=== PATIENT | male | born 1970 | race Caucasian/White ===

== ENCOUNTER 2019-04-08 16:39 | Outpatient (REF) | payer SELFPAY ==
[2019-04-08 21:25] LABS: HCT 42.2 % (40.0-50.0); HGB 14.6 g/dL (13.5-17.5); Mean Corp. HGB Concentration 34.6 g/dL (32.0-36.0); Mean Corpuscular Hemoglobin 35.4 pg (27.0-33.0); Mean Corpuscular Volume 102.2 fL (80-95); Mean Platelet Volume 11.6 fL (8.0-11.0); Platelet Count 155 x1000/uL (130-400); RBC 4.13 m/cumm (4.50-6.00); RBC Distribution Width 12.2 % (11.8-14.1); White Blood Cell Count 8.22 k/cumm (4.4-10.8)
[2019-04-08 21:36] LABS: ALT 30 U/L (16-63); AST 26 U/L (15-37); Albumin 3.8 g/dL (3.4-5.0); Alkaline Phosphatase 91 U/L (46-116); Anion Gap 8.2 mmol/L (3-11); BUN 16 mg/dL (7-18); Bilirubin, Total 0.4 mg/dL (0.2-1.0); CO2 26.8 mmol/L (21.0-32.0); Calcium 9.2 mg/dL (8.5-10.1); Chloride 106 mmol/L (98-107); Glucose 118 mg/dL (70-100); Lipase 221 U/L (73-393); Potassium 4.2 mmol/L (3.5-5.1); Sodium 141 mmol/L (136-145); Total Protein 6.9 g/dL (6.4-8.2)
== END 2019-04-08 16:59 ==
LOC: NCHCN 16:39
PROVIDERS: PCP Internal Medicine; Visit Provider Internal Medicine
DX: I10 Essential (primary) hypertension (principal); R68.89 Other general symptoms and signs; F10.19 Alcohol abuse with unspecified alcohol-induced disorder
CPT/HCPCS: 80053; 83690; 85027

== ENCOUNTER 2020-06-13 10:40 | Outpatient (REF) | payer SELFPAY ==
[2020-06-13 22:01] LABS: Calculated LDL 119 mg/dL (<100); Cholesterol 220 mg/dL (<200); HDL Cholesterol 42 mg/dL (40-60); Triglyceride 298 mg/dL (<150)
== END 2020-06-13 11:00 ==
LOC: NCHCN 10:40
PROVIDERS: PCP Internal Medicine; Visit Provider Internal Medicine
DX: Z13.220 Encounter for screening for lipoid disorders (principal)
CPT/HCPCS: 80061

== ENCOUNTER 2020-12-19 14:22 | Emergency (ER) | payer OTHER, SELFPAY ==
[2020-12-19 14:41] VITALS: BP 149/97; PULSE 69; RESP 18; TEMP 36.6; O2SAT 98
--- NOTE | 2020-12-19 14:45 | RT.EKG_ITS ---
APPROVED REPORT Exam: Resting ECG Reason for Exam: seizure Patient Location: E HR:65 bpm ECG Measurements Heart Rate 65 AXIS MI 145 P 24 QRSd 106 QRS -8 QT 419 T -2 QTc 437 Conclusion Sinus rhythm...normal P axis, V-rate 60- 99 Physician: Rate 65, sinus rhythm, no significant ST elevation or depression. Inverted T waves in V1 and lead II I. Small Q waves in lead I, aVL. Minimal less than a millimeter J-point elevation in V2. No eviden ce of STEMI. No evidence of epsilon wave, delta wave, Brugada syndrome
--- NOTE | 2020-12-19 15:00 | DI.CT_ITS ---
Exam(s) CT HEAD WO EXAM: CT HEAD WO CLINICAL HISTORY: syncope vs seizure. TECHNIQUE: Imaging Protocol: Axial computed tomography images with coronal and sagittal reformatted images were created and reviewed COMPARISON: No exams were available for comparison FINDINGS: Ventricles and Extra axial spaces: Normal in size and morphology for the patient's age. Hemorrhage: None. Cerebral parenchyma: Normal. No acute territorial infarct. Midline shift: None. Brainstem/Cerebellum: Normal. Calvarium: Normal. Chronic deformity of the medial wall of the right orbit which likely reflects osmin te injury. Visualized Paranasal sinuses/Mastoids: Mild mucosal thickening in the maxillary sinuses bilaterally. The remaining visualized paranasal sinuses and mastoid air cells are clear. Soft Tissues: Unremarkable. IMPRESSION: 1. No acute intracranial process. 2. Results of this exam have been verbally communicated with provider. RADIATION DOSE DELIVERED: 939.7mGy.cm Total DLP DATA REPOSITORY: All CT scans at this facility are submitted to the National Radiology Data Registry (NRDR) Dose Index Registry (DIR) with the [employer] (ACR). RADIATION OPTIMIZATION: All CT scans at this facility use at least one of these dose optimization te chniques: automated exposure control; mA and/or kV adjustment per patient size (includes targeted exa ms where dose is matched to clinical indication); or iterative reconstruction.
--- NOTE | 2020-12-19 15:11 | W.ED.GENAD ---
Discharge Plan Disposition Patient Disposition: HOME Condition: Good Discharge Details Clinical Impression: Syncope Primary Care Provider: Byron Morley ED Provider: Johnson Garduno Home Meds and New Rx's Prescriptions: Continued aspirin 81 mg Tablet,Delayed Release (Dr/Ec) 81 mg PO DAILY RF: 0 metoprolol tartrate 50 mg tablet 50 mg PO DAILY RF: 0 Discharge Instructions Instructions: Syncope (ED) Additional Instructions: At this time your work-up is very reassuring, there are no significant abnormalities they can be seen currently to suggest the cause of your symptoms. No evidence of acute life-threatening etiology at this time. You may have had a heart rhythm abnormality that caused your episode. You will be contacted by our respiratory therapy office and they will set up a time to get the monitor for you. We will be placing a referral with the neurologist for you for further assessment of potential seizure, although I feel this is less likely. You should not drive, operate machinery, climb heights (such as a ladder), swim, or bathe alone or do anything else which could be dangerous if you would have another episode. Please abide by this for the next 6 months or until cleared by a physician. If you notice any worsening of your symptoms, or any new symptoms such as vomiting, diarrhea, fever, chills, shortness of breath, chest pain, numbness, weakness, or fainting , please return immediately to the emergency department for reevaluation. Please follow up with your primary care provider as soon as possible for reassessment and reevaluation. As always, it was a pleasure participating in your medical care today. Referrals: Byron Morley MD [Primary Care Provider] - Discharge Data Discharge Date/Time-TO BE ENTERED AT DEPARTURE: 12/19/20 17:16 Medical Decision Making This is a 50-year-old male with a past medical history of hypertension, previous anxiety attacks, regular tobacco abuse, who presents today for evaluation of syncope versus seizure. Patient is unaware of the events that brought him here, but his significant other states that he was sitting on the couch watching TV when he suddenly zoned out, started drooling, and had notable tremulousness/shaking. The episode lasted less than a minute and the patient woke up moments later. Patient had no complaints at that time and felt like he woke up from sleep. Patient states he has been relaxing all day. The ambient temperature in his house was between 75 and 78 ?F. He denies any exertion today. Currently he admits to a very minimal headache in the left frontal aspect of his scalp, which she states is a normal place that he often gets headaches. The patient denies any headache red flags of worst headache of life, thunderclap headache, neck pain, fever, chills, concerning family history of polycystic kidney disease, Marfan syndrome, Randi-Danlos syndrome, abdominal aortic aneurysm, aortic dissection, or intracranial aneurysm. The patient denies any chest pain, tearing or ripping sensation in the chest, arm neck or shoulder pain. He denies any IV or illicit drug use. He denies any alcohol use today. He denies any vomiting, diarrhea, diaphoresis, sweatiness, vision changes, hearing changes or other complaints. No family history of sudden at a young age, syncope, strokes, aneurysms, or heart attacks less than the age of 90. Patient states that the only other time he passed out was when he was in combat during the go for. Patient states that he feels well now, and feels good enough to go home. No other complaints at this time. No other modifying factors. Physical exam is notably unremarkable and very reassuring. Patient has no meningeal signs, no nuchal rigidity. Headache is notably unremarkable both per the patient and on my exam. The headache actually gets better when I rub the front of his forehead. No pulse asymmetry. No neurologic deficits on exam. Patient feels remarkably well and states that he would like to go home. He is open to further testing though if directed. Differential at this time is broad. I feel that seizure is unlikely as there is no evidence of tongue biting, or a postictal state. HI and dissection also appear notably unlikely based on exam and history. Cardiac dysrhythmia is certainly of consideration, and we will monitor him closely here. PE is unlikely but on the differential with the notable inverted T wave in lead III, and the episode of potential syncope. We will get a D-dimer. Patient is otherwise low risk. We will gently rehydrate, monitor closely and reassess. 6:30 PM Laboratory work-up has returned unremarkable. EKG stable. Electrolytes normal. Troponin normal. Thyroid function normal, urine drug screen clean. CT scan negative for acute process per radiology. During the patient's stay here he has remained asymptomatic, feels well and notably request to go home. Repeat neurologic exam continues to remain unremarkable. I did discuss with the patient getting a repeat troponin EKG, and at this time he would like to hold off on any additional testing and go home. We discussed the risks and benefits of this and he understands. I did discuss with the patient the importance of concerning red flags for which to return. I have uncertain as to the exact etiology which caused his episode, seizure is still in the differential but seems unlikely based on history. Dysrhythmia is potentially a cause. We will schedule for a Holter monitor to be placed. We will place a referral for potential EEG testing for seizure. I have extensively reviewed the treatment plan and discharge instructions with the patient and their family. I have addressed all patient concerns at this time. The patient and family was made aware of what symptoms to monitor for that would warrant a return to the emergency department. Discussed the plan with the patient and family, they demonstrate verbal understanding and agreement with our assessment and plan at this time. The documentation in this chart was dictated using [employer] dictation software. Please excuse any dictation errors. EKG 14: 54 Rate 65, sinus rhythm, no significant ST elevation or depression. Inverted T waves in V1 and lead III. Small Q waves in lead I, aVL. Minimal less than a millimeter J-point elevation in V2. No evidence of STEMI. No evidence of epsilon wave, delta wave, Brugada syndrome. FINDINGS: Ventricles and Extra axial spaces: Normal in size and morphology for the patient's age. Hemorrhage: None. Cerebral parenchyma: Normal. No acute territorial infarct. Midline shift: None. Brainstem/Cerebellum: Normal. Calvarium: Normal. Chronic deformity of the medial wall of the right orbit which likely reflects remote injury. Visualized Paranasal sinuses/Mastoids: Mild mucosal thickening in the maxillary sinuses bilaterally. The remaining visualized paranasal sinuses and mastoid air cells are clear. Soft Tissues: Unremarkable. IMPRESSION: 1. No acute intracranial process. 2. Results of this exam have been verbally communicated with provider. HPI General Date/Time Provider Initiated Documentation: 12/19/20 14:32. HPI Narrative: This is a 50-year-old male with a past medical history of hypertension, previous anxiety attacks, regular tobacco abuse, who presents today for evaluation of syncope versus seizure. Patient is unaware of the events that brought him here, but his significant other states that he was sitting on the couch watching TV when he suddenly zoned out, started drooling, and had notable tremulousness/shaking. The episode lasted less than a minute and the patient woke up moments later. Patient had no complaints at that time and felt like he woke up from sleep. Patient states he has been relaxing all day. The ambient temperature in his house was between 75 and 78 ?F. He denies any exertion today. Currently he admits to a very minimal headache in the left frontal aspect of his scalp, which she states is a normal place that he often gets headaches. The patient denies any headache red flags of worst headache of life, thunderclap headache, neck pain, fever, chills, concerning family history of polycystic kidney disease, Marfan syndrome, Randi-Danlos syndrome, abdominal aortic aneurysm, aortic dissection, or intracranial aneurysm. The patient denies any chest pain, tearing or ripping sensation in the chest, arm neck or shoulder pain. He denies any IV or illicit drug use. He denies any alcohol use today. He denies any vomiting, diarrhea, diaphoresis, sweatiness, vision changes, hearing changes or other complaints. No family history of sudden at a young age, syncope, strokes, aneurysms, or heart attacks less than the age of 90. Patient states that the only other time he passed out was when he was in combat during the go for. Patient states that he feels well now, and feels good enough to go home. No other complaints at this time. No other modifying factors. Related Data Home Medications Medication Instructions Recorded Confirmed aspirin 81 mg PO DAILY 12/19/20 12/19/20 metoprolol tartrate 50 mg PO DAILY 12/19/20 12/19/20 Allergies Allergy/AdvReac Type Severity Reaction Status Date / Time codeine AdvReac Unverified 07/07/13 18:11 General Stated Complaint: Seizure ISSA: 2 Review of Systems All systems reviewed & are unremarkable except as noted in HPI and below PFSH Social History Smoking/Tobacco Use Status: Current every day Tobacco Type: cigarettes Smoking risk assessment performed?: Yes Alcohol Intake: current Alcohol Intake frequency: 3 or more drinks per day Alcohol type: hard liquor Drug use: Never Do you feel safe at home: Yes Do you feel safe in your relationship?: Yes Exam Narrative Exam Narrative: 1.Const: Well-nourished, Well-developed, appearing stated age 2.Eyes: PERRL, no conjunctival injection, and symmetrical lids. 3.ENT: Atraumatic external nose and ears. Moist MM. Neck: Symmetric, trachea midline, No thyromegaly. Patient demonstrates good movement of cervical neck. There is no nuchal rigidity, no nuchal tenderness. Patient is able to flex the neck without any difficulty or significant pain. Negative Kernig's and Brudzinski sign. 4.CVS: +S1/S2, No murmurs or gallops. Peripheral pulses 2+ and equal in all extremities. Brisk capillary refill in all extremities. 5.RESP: Unlabored respiratory effort. Clear to auscultation bilaterally. No wheezes rales or rhonchi 6.GI: Soft, Nontender/Nondistended, No hepatosplenomegaly. No guarding or rebound. 7.MSK: Normocephalic/Atraumatic, Extremities w/o deformity or ttp No cyanosis or clubbing, Normal movement of all extremities 8.Skin: Warm, Dry. No rashes or lesions. 9.Neuro: basketball referee II-XII grossly intact. Sensation grossly intact, no focal neurologic deficits. All 6 cardinal planes of vision are fully intact. No evidence of rotatory or vertical nystagmus. The patient demonstrated a normal hcsuvs-fzyf-hpibze, good dexterity. There was no evidence of dysdiadochokinesia. Patient was able to ambulate without difficulty. There was no wide-based gait. Romberg testing was normal. Yurd-wh-glty testing was normal. Sensation was intact bilaterally as well as muscle strength bilaterally for all extremities. Patient was able to verbalize butter cup with no slurring, or miss pronunciation. 10.Psych: (AAO) x3. Appropriate mood and affect Course Vital Signs Vital signs: Vital Signs Temperature 36.6 C 12/19/20 14:41 Pulse 69 12/19/20 14:41 Respiratory Rate 18 12/19/20 14:41 Blood Pressure 149/97 H 12/19/20 14:41 Pulse Oximetry 98 12/19/20 14:41 Temperature 36.6 C 12/19/20 14:41 Temperature Source Temporal Artery Scan 12/19/20 14:41 Pulse 69 12/19/20 14:41 Respiratory Rate 18 12/19/20 14:41 Respiratory Effort Non-Labored 12/19/20 14:47 Blood Pressure 149/97 H 12/19/20 14:41 Blood Pressure Position Sitting 12/19/20 14:41 Pulse Oximetry 98 12/19/20 14:41 Oxygen Delivery Method Room Air 12/19/20 14:41 Oxygen Flow Rate 0 12/19/20 14:41 Pain Level 0 12/19/20 14:41
[2020-12-19] MEDS: Normal Saline 1,000 ML 1000 ML IV (15:14)
[2020-12-19 15:25] LABS: Abs Immature Grans 0.01 10^3/uL (0.0-0.06); Absolute Basophil Count 0.04 10^3/uL (0.0-0.2); Absolute Eosinophil Count 0.14 10^3/uL (0.0-0.7); Absolute Lymphocyte Count 1.69 10^3/uL (1.2-3.4); Absolute Neutrophil Count 3.54 10^3/uL (1.2-6.7); Basophils % 0.6; Eosinophils % 2.3; HGB 14.6 g/dL (13.5-17.5); Immature Grans % 0.2; Lymphocytes % 27.2; MCH 32.5 pg (27.0-33.0); MCV 95.8 fL (80-95); MPV 11.2 fL (8.0-11.0); Monocytes % 12.9; Neutrophils % 56.8; Nucleated RBC 0 %; Platelet Count 161 10^3/uL (130-400); RBC 4.49 10^6/uL (4.36-5.78); RDW 12.5 % (11.8-14.1); RDW-SD 44.3 fL; WBC 6.22 10^3/uL (4.4-10.8)
[2020-12-19 15:59] LABS: Troponin I < 0.05 ng/mL (<0.06)
[2020-12-19 16:00] LABS: ALT 25 U/L (16-63); AST 15 U/L (15-37); Albumin 3.7 g/dL (3.4-5.0); Alkaline Phosphatase 104 U/L (46-116); Anion Gap 7.5 mmol/L (3-11); BUN 15 mg/dL (7-18); Bilirubin, Total 0.3 mg/dL (0.2-1.0); CO2 27.5 mmol/L (21.0-32.0); CREATININE 0.9 mg/dL (0.70-1.30); Calcium 9.3 mg/dL (8.5-10.1); Chloride 104 mmol/L (98-107); Glucose 114 mg/dL (74-106); Potassium 3.7 mmol/L (3.5-5.1); Sodium 139 mmol/L (136-145); TSH (W/Ref FT4) 1.94 uIU/mL (0.36-3.74); Total Protein 7.3 g/dL (6.4-8.2)
[2020-12-19 16:02] LABS: PTT Activated 23.9 sec (21.0-27.5); Prothrombin Time 9.6 sec (9.3-11.0)
[2020-12-19 16:11] LABS: *AMPHETAMINES SCREEN URINE Negative (Negative); *BARBITURATES SCREEN URINE Negative (Negative); *BENZODIAZEPINES SCREEN URINE Negative (Negative); Cannabinoids THC Negative (Negative); Cocaine Screen,Urine Negative (Negative); METHADONE URINE SCREEN Negative (Negative); OPIATES URINE SCREEN Negative (Negative)
[2020-12-19 16:16] LABS: D-Dimer 132 ng/mlFEU (<500)
[2020-12-19 16:27] LABS: Tricyclic Antidepressants Negative (Negative)
--- NOTE | 2020-12-19 17:06 | NUR.NOTE ---
Nursing Note: Referral faxed to [facility] for seizure, follow up in 1 to 2 weeks. Kay Rao
--- NOTE | 2020-12-19 17:13 | NUR.NOTE ---
Nursing Note: [place] [phone]
== END 2020-12-19 17:16 | disposition home or self-care (01) ==
PROVIDERS: Emergency Provider Student in an Organized Health Care Education/Training Program; PCP Internal Medicine
DX: R55 Syncope and collapse (principal)
CPT/HCPCS: 80053; 80307; 93005; 96360; 99284; 70450; 83735; 84443; 84484; 85025; 85379; 85610; 85730; 93010; 93225

== ENCOUNTER 2020-12-29 03:23 | Outpatient (RCR) | payer OTHER, SELFPAY ==
--- NOTE | 2020-12-29 09:45 | HOLTER_ITS ---
APPROVED REPORT Conclusion This was a 48-hour Holter monitor ordered for syncope Predominant rhythm was sinus with an average heart rate of 86. Minimum was 64, maximum 119 A total of 3 isolated PVCs were seen There were rare atrial premature beats. There was 1 self-limited atrial run, 3 beats in duration There was no atrial fibrillation, no high-grade AV block, no pauses greater than 3 seconds No symptoms were reported
== END 2021-01-10 23:59 | disposition home or self-care (01) ==
LOC: RT 03:23
PROVIDERS: PCP Internal Medicine; Visit Provider Internal Medicine
DX: R55 Syncope and collapse (principal); I49.3 Ventricular premature depolarization; I49.1 Atrial premature depolarization
CPT/HCPCS: 93225; 93226

== ENCOUNTER 2021-03-30 17:19 | Outpatient (REF) | payer SELFPAY ==
[2021-04-01 15:58] LABS: COVID-19 RT-PCR UVMMC Result Negative (Negative)
== END 2021-03-30 17:20 | disposition home or self-care (01) ==
LOC: NCHCN 17:19
PROVIDERS: PCP Internal Medicine; Visit Provider Family Medicine
DX: Z20.822 Contact with and (suspected) exposure to COVID-19 (principal)
CPT/HCPCS: U0003

== ENCOUNTER → 2022-02-25 01:40 | Outpatient (CLI) | payer OTHER, SELFPAY ==
--- NOTE | 2022-02-25 | DI.US_ITS ---
Exam(s) US BREAST LT COMPLETE EXAM: US BREAST LT COMPLETE CLINICAL HISTORY: LT BREAST LUMP, N63.0, [id number]. TECHNIQUE: Complete ultrasound of the left breast was performed including all 4 quadrants, the retro areolar region, and the ipsilateral axilla. COMPARISON: Today's mammogram was reviewed FINDINGS: Retroareolar region density measuring 2 x 1.2 cm, correspond to the finding on the mammogram. Typica l for gynecomastia. No other significant focal findings in all 4 quadrants of the left breast. Scanning of the left axilla is negative for adenopathy. IMPRESSION: Moderate gynecomastia left breast. BI-RADS Category 2 - Benign Findings Breast Density - Category B - Scattered areas of fibroglandular density Breast density Category C or D implies that the patient has dense breast tissue. Dense breast tissue can make it harder to find cancer on a mammogram. Dense breast tissue is also associated with an incr eased risk of breast cancer. This information about the result of the mammogram report was provided to the patient to raise their awareness. Use this report when you speak with the patient about their risks for breast cancer, which includes their family history. At that time, you may recommend additional screening tests (Ultrasoun d or MRI) as these tests may add significant information. A negative radiographic report should not delay biopsy if a dominant or clinically suspicious mass is present. Up to ten percent of cancers are not identified on mammography. A negative report may reinforce clinical impression. Adenosis and dense breasts may obscure an underlying neoplasm. False positive reports average 6 to 10%. Patient will receive a letter notifying them of these results.
--- NOTE | 2022-02-25 13:25 | DI.MAMMO_ITS ---
Exam(s) MAMMO DIAGNOSTIC BI EXAM: MAMMO DIAGNOSTIC BI AND COMPLETE LEFT BREAST ULTRASOUND CLINICAL HISTORY: LT BREAST LUMP, N63.0, [id number]. TECHNIQUE: BOTH CC AND MLO mammographic images were obtained with 3D tomosynthesis technique and uti lizing computer aided detection (CAD). Also performed complete ultrasound examination left breast including all 4 quadrants, the retroareola r region, and left axilla COMPARISON: None. This is the 1st mammogram for this 51-year-old male patient. Patient feels a lum p in the retroareolar region left breast. FINDINGS: DIAGNOSTIC BILATERAL MAMMOGRAM: There is bilateral gynecomastia, significantly more so on the left side. On the left side there is t ypical flame shaped density emanating up from the nipple towards the upper outer quadrant, typical of gynecomastia. A lesser amount of the same is seen on the opposite-right side. There are no maligna nt-appearing microcalcification groups in this region or elsewhere in the breast. No additional nodu les evident. No enlarged axillary lymph nodes. COMPLETE LEFT BREAST ULTRASOUND: There is typical gynecomastia in the retroareolar region of the left breast. No other discernible fo brett findings in all 4 quadrants. No ipsilateral axillary adenopathy IMPRESSION: Findings are consistent with bilateral gynecomastia. This is significantly more prominent on the lef t side. There are no malignant-appearing masses. BI-RADS Category 2 - Benign Findings Breast Density - Category B - Scattered areas of fibroglandular density Breast density Category C or D implies that the patient has dense breast tissue. Dense breast tissue can make it harder to find cancer on a mammogram. Dense breast tissue is also associated with an incr eased risk of breast cancer. This information about the result of the mammogram report was provided to the patient to raise their awareness. Use this report when you speak with the patient about their risks for breast cancer, which includes their family history. At that time, you may recommend additional screening tests (Ultrasoun d or MRI) as these tests may add significant information. A negative radiographic report should not delay biopsy if a dominant or clinically suspicious mass is present. Up to ten percent of cancers are not identified on mammography. A negative report may reinforce clinical impression. Adenosis and dense breasts may obscure an underlying neoplasm. False positive reports average 6 to 10%. Patient will receive a letter notifying them of these results.
== END ==
PROVIDERS: PCP Internal Medicine; Visit Provider Family Medicine
DX: N62 Hypertrophy of breast (principal)
CPT/HCPCS: 76642; 77062; 77066; G0279

== ENCOUNTER 2022-12-30 17:22 | Emergency (ER) | payer OTHER, SELFPAY ==
[2022-12-30 17:23] VITALS: BP 154/102; PULSE 87; RESP 15; TEMP 36.4; O2SAT 98
--- NOTE | 2022-12-30 18:19 | DI.RAD_ITS ---
Exam(s) XR THUMB LT EXAM: XR THUMB LT EXAM DATE/TIME: CLINICAL HISTORY: skil saw laceration. TECHNIQUE: 2D digital imaging was performed. COMPARISON: None. FINDINGS: BONES: There is a comminuted fracture of the distal phalanx of the thumb. There are displaced fractu re fragments. There is a soft tissue defect on the dorsum of the thumb suggesting an open fracture. There are tiny densities adjacent to the head of the proximal phalanx which may represent a small av ulsed fracture. No bony destructive lesion is seen. JOINTS: No dislocation present. SOFT TISSUE: Normal. IMPRESSION: 1. Findings of an open comminuted fracture of the distal phalanx of the thumb. 2. Findings suspicious for avulsed fracture involving the head of the proximal phalanx of the thumb. DATA REPOSITORY: RADIATION DOSE DELIVERED:
--- NOTE | 2022-12-30 18:54 | DI.VRAD_ITS ---
PROCEDURE INFORMATION: Exam: XR Left Finger(s) Exam date and time: 12/30/2022 6:12 PM Age: 52 years old Clinical indication: Injury or trauma; Other: Chain saw accident; Bleeding/hemorrhage; Finger; Left thumb; Injury date: 12/30/2022 TECHNIQUE: Imaging protocol: Radiologic exam of the left fingers. Views: Minimum 2 views. COMPARISON: No relevant prior studies available. FINDINGS: Bones/joints: Comminuted open fracture of the distal thumb phalanx. The interphalangeal and metacarpophalangeal joint are intact. Soft tissues: Soft tissue defect along the nailbed area. IMPRESSION: Open comminuted fracture distal thumb phalanx. Dictated and Authenticated by: Chintan Arora MD. Ordering:LOREN Block MD
[2022-12-30] MEDS: Cephalexin 500 MG CAP, 4 CAPS/BTL PO (19:24)
--- NOTE | 2022-12-30 19:25 | NUR.NOTE ---
Pt placed on senior caregiver list for F/U with hand surgery. F/U within 1-2 days due to urgency.
--- NOTE | 2023-01-01 08:19 | ED.GENADUL_ITS ---
Discharge Plan Disposition Patient Disposition: Home Discharge Details Clinical Impression: Open fracture of left thumb Primary Care Provider: Byron Morley ED Provider: Mckayla Krishnan Home Meds and New Rx's Prescriptions: New cephalexin 500 mg capsule 500 mg PO Q6H 7 Days Qty: 28 0RF Continued fluoxetine [Prozac] 10 mg capsule 10 mg PO DAILY PRN aspirin 81 mg Tablet,Delayed Release (Dr/Ec) 81 mg PO DAILY metoprolol tartrate 50 mg tablet 50 mg PO DAILY Patient Comments: TAKE ONE TABLET BY MOUTH TWICE A DAY Discharge Instructions Additional Instructions: Take the antibiotics as prescribed Ibuprofen and Tylenol as needed for pain Keep a bulky dressing in place It is very important that you follow-up with hand surgery, you are at risk for infection or even loss of your thumb without appropriate follow-up I placed a referral to the [facility] in [place] for hand surgery follow-up I will also send a message to your primary care physician Keep a bulky dressing in place, you should not be bending your thumb until you are cleared by hand surgery Please take the antibiotic daily Sutures will need to be removed in 14 days Return immediately with fever, chills, or with any new or worsening complaint Referrals: Kam Freire MD [ [facility] STAFF PHYSICIAN] - 1 day Discharge Data Discharge Date/Time-TO BE ENTERED AT DEPARTURE: 12/30/22 19:50 Medical Decision Making 52-year-old gentleman presents under the influence of alcohol but alert and oriented and ambulatory X-ray was ordered which shows fracture through PIP joint on thumb, open fracture, mildly diminished flexion, extension intact, neurovascularly intact per radiology interpretation and my review Physician tiler's assistant Jamison initiated Laceration sutured and referral to urgent hand surgery at the [facility] with care management assistance Tetanus updated Placed in a bulky dressing which will also allow for splinting Return precautions reviewed and patient expressed understanding, we had several conversations regarding need for emergent hand surgery reassessment within the next 2 to 3 days Patient appears to understand and was able to reiterate our conversation HPI General Date/Time Provider Initiated Documentation: 12/30/22 17:58 . HPI Narrative: This 52-year-old gentleman presents with report of injury to thumb. He took 4 shots of alcohol and use the skills got, accidentally cutting his thumb. Denies any additional injuries. He denies history of coagulopathy. The event occurred approximately an hour prior to arrival per patient. He denies any strength or sensation change. Unsure regarding his tetanus. Related Data Home Medications Medication Instructions Recorded Confirmed aspirin 81 mg tablet,delayed 81 mg PO DAILY 12/19/20 12/30/22 release metoprolol tartrate 50 mg tablet 50 mg PO DAILY 12/19/20 12/30/22 fluoxetine 10 mg capsule (Prozac) 10 mg PO DAILY PRN 12/26/20 12/30/22 cephalexin 500 mg capsule 500 mg PO Q6H 7 days #28 caps 12/30/22 Previous Rx's Medication Instructions Recorded cephalexin 500 mg capsule 500 mg PO Q6H 7 days #28 caps 12/30/22 Allergies Allergy/AdvReac Type Severity Reaction Status Date / Time poison kamran extract Allergy Verified 12/30/22 17:27 poison oak extract Allergy Verified 12/30/22 17:27 codeine AdvReac Unverified 12/30/22 17:27 General Stated Complaint: Laceration ISSA: 4 PFSH All Active Problems (Updated 12/30/22 @ 19:37 by GERARDO López) Open fracture of left thumb (Acute) Spell of altered cognition (Acute) Syncope (Chronic) Medical History Anxiety Excessive drinking of alcohol Hypertension Smoker Surgical History S/P eye surgery metal shrapnel removal S/P hernia repair Social History Smoking/Tobacco Use Status: Current every day Tobacco Type: cigarettes Smoking packs per day: 0.25 Smoking cigarettes per day: 5.0 Smoking risk assessment performed?: Yes Alcohol Intake: current Alcohol Intake frequency: 3 or more drinks per day Alcohol type: hard liquor Drug use: Never Substance use type: does not use Household members: significant other and children Housing: house current occupation: Yardwork; [employer] Pets and animals: Yes Pets and animals: dog(s) and farm animals What is your relationship status?: Panel score (0-1 are the most socially isolated patients): 0 What type of physical activity do you participate in: walking Seatbelt use: always Do you feel safe at home: Yes Do you feel safe in your relationship?: Yes Exam Neuro Other: Alert and oriented, emotionally labile Extrem Other: Left thumb with approximately 2 inch laceration, able to flex and extend thumb, sensation intact distally mildly diminished flexion Course Vital Signs Vital signs: Vital Signs Temperature 36.4 C L 12/30/22 17:23 Pulse 87 12/30/22 17:23 Respiratory Rate 15 12/30/22 17:23 Blood Pressure 154/102 H 12/30/22 17:23 Pulse Oximetry 98 12/30/22 17:23 Temperature 36.4 C L 12/30/22 17:23 Temperature Source Temporal Artery Scan 12/30/22 17:23 Pulse 87 12/30/22 17:23 Respiratory Rate 15 12/30/22 17:23 Respiratory Effort Normal 12/30/22 17:25 Blood Pressure 154/102 H 12/30/22 17:23 Blood Pressure Position Sitting 12/30/22 17:23 Pulse Oximetry 98 12/30/22 17:23 Oxygen Delivery Method Room Air 12/30/22 17:23 Oxygen Flow Rate 0 12/30/22 17:23 Pain Level 4 12/30/22 19:43 PAWSS Have you Been Recently Intoxicated or Drunk Within the Last 30 days?: Yes Have you Ever Experienced Previous Episodes of Alcohol Withdrawal?: Yes Have you ever Experienced Withdrawal Seizures?: No Have you ever Experienced Delirium Tremens(DT)s?: No Have you ever undergone Alcohol Rehabilitation Treatment (i.e, inpt ot outpatient treatment programs)?: No Have you ever Experienced Blackouts?: No Have you ever Combined Alcohol with other Downers within the last 90 days?: No Have you ever Combined Alcohol with any other Substance of Abuse during the last 90 days?: No Result: 2
== END 2022-12-30 19:50 | disposition home or self-care (01) ==
PROVIDERS: Emergency Provider Physician Assistant; PCP Internal Medicine
DX: S62.502B Fracture of unspecified phalanx of left thumb, initial encounter for open fracture (principal); W29.3XXA Contact with powered garden and outdoor hand tools and machinery, initial encounter
CPT/HCPCS: 90471; 99284; 73140

== ENCOUNTER 2023-11-13 13:47 | Emergency (ER) | payer OTHER, SELFPAY ==
[2023-11-13 13:51] VITALS: BP 219/130; PULSE 117; RESP 20; O2SAT 100
--- NOTE | 2023-11-13 14:16 | ED.GENADUL_ITS ---
Discharge Plan Disposition Patient Disposition: Home Condition: Improving Discharge Details Chief Complaint: Epistaxis Clinical Impression: Epistaxis Primary Care Provider: Byron Morley ED Provider: Tirso Altamirano Home Meds and New Rx's Prescriptions: No Action fluoxetine [Prozac] 10 mg capsule 10 mg PO DAILY PRN aspirin 81 mg Tablet,Delayed Release (Dr/Ec) 81 mg PO DAILY metoprolol tartrate 50 mg tablet 50 mg PO DAILY Patient Comments: TAKE ONE TABLET BY MOUTH TWICE A DAY Discharge Instructions Instructions: Nosebleed (ED) Additional Instructions: Please follow-up with your primary care physician or return to the emergency department to have your nasal packing removed within the next 2 days. HPI General Date/Time Provider Initiated Documentation: 11/13/23 13:49 . HPI Narrative: 52-year-old male presents with intermittent nosebleed over the last 2 days, mainly comes from his left nares, denies trauma denies drug use Related Data Home Medications Medication Instructions Recorded Confirmed aspirin 81 mg tablet,delayed 81 mg PO DAILY 12/19/20 11/13/23 release metoprolol tartrate 50 mg tablet 50 mg PO DAILY 12/19/20 11/13/23 fluoxetine 10 mg capsule (Prozac) 10 mg PO DAILY PRN 12/26/20 11/13/23 Allergies Allergy/AdvReac Type Severity Reaction Status Date / Time Opioids - Morphine Analogues Allergy Mild rash Verified 11/13/23 14:04 poison kamran extract Allergy Other (See Verified 11/13/23 14:04 Comment) poison oak extract Allergy Other (See Verified 11/13/23 14:04 Comment) codeine AdvReac Mild Other (See Unverified 11/13/23 14:04 Comment) General Stated Complaint: Epistaxis ISSA: 3 Exam Narrative Exam Narrative: Examination: HEENT: Anterior epistaxis from left nares, no signs of posterior bleed, no signs of trauma Respiratory: Speaking full sentences no respiratory distress Course Vital Signs Vital signs: Vital Signs Pulse 117 H 11/13/23 13:51 Respiratory Rate 20 11/13/23 13:51 Blood Pressure 219/130 H 11/13/23 13:51 Pulse Oximetry 100 11/13/23 13:51 Pulse 117 H 11/13/23 13:51 Respiratory Rate 20 11/13/23 13:51 Respiratory Effort Normal 11/13/23 13:59 Blood Pressure 219/130 H 11/13/23 13:51 Blood Pressure Position Sitting 11/13/23 13:51 Pulse Oximetry 100 11/13/23 13:51 Oxygen Delivery Method Room Air 11/13/23 13:51 Oxygen Flow Rate 0 11/13/23 13:51 Pain Level 0 11/13/23 13:51 Medical Decision Making 52-year-old male presents with intermittent nosebleed left anterior nares over the last 24 to 48 hours, atraumatic denies drug use, no to be hypertensive tachycardic on arrival likely stress response to epistaxis. Neurologically intact, no respiratory compromise, anterior left nares bleeds no signs of posterior bleed. Will attempt hemostasis with TXA and Afrin. Close reassessment if unsuccessful will likely place Rhino Rocket 15: 36 despite administration of TXA and Afrin and nasal clamp, patient still having anterior nosebleed. 7.5 Rhino Rocket placed in left nares with great hemostasis. Patient resting comfortably no acute distress Quality:SDOH Health Related Social Needs: No Data to Display PFSH All Active Problems (Updated 11/13/23 @ 15:37 by Tirso Altamirano MD) Epistaxis (Acute) Spell of altered cognition (Acute) Syncope (Chronic) Medical History Anxiety Excessive drinking of alcohol Hypertension Smoker Surgical History S/P eye surgery metal shrapnel removal S/P hernia repair Social History Smoking/Tobacco Use Status: Current every day Tobacco Type: cigarettes Smoking packs per day: 0.25 Smoking cigarettes per day: 5.0 Smoking risk assessment performed?: Yes Alcohol Intake: current Alcohol Intake frequency: 3 or more drinks per day Alcohol type: hard liquor Drug use: Never Substance use type: does not use Household members: significant other and children Housing: house current occupation: Yardwork; [employer] Pets and animals: Yes Pets and animals: dog(s) and farm animals What is your relationship status?: Panel score (0-1 are the most socially isolated patients): 0 What type of physical activity do you participate in: walking Seatbelt use: always Do you feel safe at home: Yes Do you feel safe in your relationship?: Yes
[2023-11-13] MEDS: Oxymetazolone 0.05% SPRAY 15 ML BTL NS (14:24)
[2023-11-13] MEDS: Tranexamic Acid 1,000 MG/10 ML VIAL 500 MG NS (14:25)
== END 2023-11-13 16:07 | disposition home or self-care (01) ==
LOC: ER 16:11
PROVIDERS: Emergency Provider Emergency Medicine; PCP Internal Medicine
DX: R04.0 Epistaxis (principal); I10 Essential (primary) hypertension
CPT/HCPCS: 30903

== ENCOUNTER 2023-11-15 12:17 | Emergency (ER) | payer OTHER, SELFPAY ==
[2023-11-15 12:18] VITALS: BP 188/87; PULSE 93; RESP 15; TEMP 37.5; O2SAT 99
--- NOTE | 2023-11-15 12:50 | ED.GENADUL_ITS ---
Discharge Plan Disposition Patient Disposition: Home Condition: Stable Discharge Details Clinical Impression: Epistaxis Primary Care Provider: Byron Morley ED Provider: Mckayla Krishnan Home Meds and New Rx's Prescriptions: Continued fluoxetine [Prozac] 10 mg capsule 10 mg PO DAILY PRN aspirin 81 mg Tablet,Delayed Release (Dr/Ec) 81 mg PO DAILY metoprolol tartrate 50 mg tablet 50 mg PO DAILY Patient Comments: TAKE ONE TABLET BY MOUTH TWICE A DAY Discharge Instructions Instructions: Nosebleed (ED) Additional Instructions: Cut your nostrils daily with Vaseline and use a humidifier in your room at night Great job with your alcohol cessation although it is typically recommended to decrease by 1 drink daily so you do not develop withdrawals Should your nose start bleeding again, you may use Afrin nasal spray, 2 sprays in your nose and apply her nasal clamp for 20 minutes, if you continue to bleed, please be reassessed Please return earlier should you have new or worsening complaints Referrals: Byron Morley MD [Primary Care Provider] - Discharge Data Discharge Date/Time-TO BE ENTERED AT DEPARTURE: 11/15/23 13:07 HPI General Date/Time Provider Initiated Documentation: 11/15/23 12:21 . HPI Narrative: This 52-year-old male presents with report of epistaxis with Rhino Rocket placement on Friday of this week. He has had cessation of bleeding and presents for Rhino Rocket removal. He denies any fever or chills. Denies any history of coagulopathy. He does consume alcohol several times a week but denies any history of withdrawals and has not had a drink for several days per patient. Denies any bleeding from other sites. Denies any weakness or dizziness. Related Data Home Medications Medication Instructions Recorded Confirmed aspirin 81 mg tablet,delayed 81 mg PO DAILY 12/19/20 11/13/23 release metoprolol tartrate 50 mg tablet 50 mg PO DAILY 12/19/20 11/13/23 fluoxetine 10 mg capsule (Prozac) 10 mg PO DAILY PRN 12/26/20 11/13/23 Allergies Allergy/AdvReac Type Severity Reaction Status Date / Time Opioids - Morphine Analogues Allergy Mild rash Verified 11/13/23 14:04 poison kamran extract Allergy Other (See Verified 11/13/23 14:04 Comment) poison oak extract Allergy Other (See Verified 11/13/23 14:04 Comment) codeine AdvReac Mild Other (See Unverified 11/13/23 14:04 Comment) General Stated Complaint: Recheck ISSA: 4 Exam Narrative Exam Narrative: Well-appearing 52-year-old gentleman alert and oriented with Rhino Rocket in place, no maxillary tenderness, no respiratory distress Course Vital Signs Vital signs: Vital Signs Temperature 37.5 C 11/15/23 12:18 Pulse 93 H 11/15/23 12:18 Respiratory Rate 15 11/15/23 12:18 Blood Pressure 188/87 H 11/15/23 12:18 Pulse Oximetry 99 11/15/23 12:18 Temperature 37.5 C 11/15/23 12:18 Temperature Source Tympanic 11/15/23 12:18 Pulse 93 H 11/15/23 12:18 Respiratory Rate 15 11/15/23 12:18 Respiratory Effort Normal 11/15/23 12:22 Blood Pressure 188/87 H 11/15/23 12:18 Blood Pressure Position Sitting 11/15/23 12:18 Pulse Oximetry 99 11/15/23 12:18 Oxygen Delivery Method Room Air 11/15/23 12:18 Oxygen Flow Rate 0 11/15/23 12:18 Medical Decision Making 52-year-old gentleman presenting for Rhino Rocket removal status post epistaxis event. Rhino Rocket was removed without difficulty patient did have some residual bleeding, clots were removed patient blowing nose excessively, he did have scant oozing, he was given Afrin and nasal clamp and is requesting discharge home at this time. There is no significant bleeding at time of discharge home and no urgent indication to have Rhino Rocket replaced. If patient does have persistent bleeding he likely should have CBC checked however I have low suspicion for coagulopathy or anemia at this time. No evidence of infectious etiology at this time. Mild hypertension, patient encouraged to follow-up with his primary care physician regarding this finding, no reported chest pain or shortness of breath. Quality:SDOH Health Related Social Needs: No Data to Display PFSH All Active Problems (Updated 11/15/23 @ 12:56 by GERARDO López) Epistaxis (Acute) Spell of altered cognition (Acute) Syncope (Chronic) Medical History Anxiety Excessive drinking of alcohol Hypertension Smoker Surgical History S/P eye surgery metal shrapnel removal S/P hernia repair Social History Smoking/Tobacco Use Status: Current every day Tobacco Type: cigarettes Smoking packs per day: 0.25 Smoking cigarettes per day: 5.0 Smoking risk assessment performed?: Yes Alcohol Intake: current Alcohol Intake frequency: 3 or more drinks per day Alcohol type: hard liquor Drug use: Never Substance use type: does not use Household members: significant other and children Housing: house current occupation: Yardwork; [employer] Pets and animals: Yes Pets and animals: dog(s) and farm animals What is your relationship status?: Panel score (0-1 are the most socially isolated patients): 0 What type of physical activity do you participate in: walking Seatbelt use: always Do you feel safe at home: Yes Do you feel safe in your relationship?: Yes PAWSS Have you Been Recently Intoxicated or Drunk Within the Last 30 days?: No Have you Ever Experienced Previous Episodes of Alcohol Withdrawal?: No Have you ever Experienced Withdrawal Seizures?: No Have you ever Experienced Delirium Tremens(DT)s?: No Have you ever undergone Alcohol Rehabilitation Treatment (i.e, inpt ot outpatient treatment programs)?: No Have you ever Experienced Blackouts?: No Have you ever Combined Alcohol with other Downers within the last 90 days?: No Have you ever Combined Alcohol with any other Substance of Abuse during the last 90 days?: No Positive Blood Alcohol level on Presentation? [PCS.BAL]: No Evidence of Increased Autonomic Activity (i.e. HR>120, tremor, sweating, agitat ion, nausea)?: No Result: 0
[2023-11-15] MEDS: Oxymetazolone 0.05% SPRAY 15 ML BTL NS (13:07)
== END 2023-11-15 13:07 | disposition home or self-care (01) ==
LOC: ER 13:12
PROVIDERS: Emergency Provider Physician Assistant; PCP Internal Medicine
DX: R04.0 Epistaxis (principal); I10 Essential (primary) hypertension
CPT/HCPCS: 99281; 99282

== ENCOUNTER 2025-01-03 13:44 | Emergency (ER) | payer OTHER, SELFPAY ==
[2025-01-03 13:53] VITALS: BP 181/120; PULSE 102; RESP 20; TEMP 36.7; O2SAT 98
--- NOTE | 2025-01-03 14:16 | W.ED.GENAD ---
Discharge Plan Disposition Patient Disposition: Home Condition: Good Discharge Details Clinical Impression: Cellulitis of left shoulder, Hypertension, Patient cannot afford medications, Homeless Primary Care Provider: Kam Freire ED Provider: Johnson Garduno Home Meds and New Rx's Prescriptions: New clindamycin HCl 150 mg capsule 450 mg PO Q6H 7 Days Qty: 84 0RF No Action fluoxetine [Prozac] 10 mg capsule 10 mg PO DAILY PRN aspirin 81 mg Tablet,Delayed Release (Dr/Ec) 81 mg PO DAILY metoprolol tartrate 50 mg tablet 50 mg PO DAILY Patient Comments: TAKE ONE TABLET BY MOUTH TWICE A DAY Discharge Instructions Instructions: Cellulitis (Skin Infection), Adult ED Additional Instructions: At this time you have a mild infection on the skin on your back. There is concern that this could have been from MRSA. Please take the antibiotic clindamycin as prescribed. Please make sure to take a probiotic or yogurt with live culture to help reduce risk of infectious diarrhea. If you notice any worsening of your symptoms, or any new symptoms such as vomiting, diarrhea, fever, chills, shortness of breath, chest pain, numbness, weakness, or fainting , please return immediately to the emergency department for reevaluation. Please follow up with your primary care provider as soon as possible for reassessment and reevaluation. As always, it was a pleasure participating in your medical care today. Referrals: Kam Freire MD [Primary Care Provider, Medicine] Discharge Data Discharge Date/Time-TO BE ENTERED AT DEPARTURE: 01/03/25 14:42 HPI General Date/Time Provider Initiated Documentation: 01/03/25 14:00. HPI Narrative: 54-year-old homeless male presents today for evaluation of rash on his left shoulder/back. He has a history of hypertension but has not been taking his hypertensive medications because of their cost. He states that few days ago he noticed a red spot on his left back, it grew in size, and eventually developed a purulent area which was popped and drained. However he still has pain since then. He denies fever or chills. He denies any previous tick bite there. No other complaints at this time. No other modifying factors. Related Data Home Medications ?Medication ?Instructions ?Recorded ?Confirmed aspirin 81 mg tablet,delayed 81 mg PO DAILY 12/19/20 01/03/25 release Held on 01/03/25. Instructions: Pt Stopped/Never Started metoprolol tartrate 50 mg tablet 50 mg PO DAILY 12/19/20 01/03/25 Held on 01/03/25. Instructions: Pt Stopped/Never Started fluoxetine 10 mg capsule (Prozac) 10 mg PO DAILY PRN 12/26/20 01/03/25 Held on 01/03/25. Instructions: Pt Stopped/Never Started clindamycin HCl 150 mg capsule 450 mg (3 x 150 mg) PO Q6H 7 days 01/03/25 #84 caps Previous Rx's ?Medication ?Instructions ?Recorded clindamycin HCl 150 mg capsule 450 mg (3 x 150 mg) PO Q6H 7 days 01/03/25 #84 caps Allergies Allergy/AdvReac Type Severity Reaction Status Date / Time Opioids - Morphine Analogues Allergy Mild rash Verified 01/03/25 13:52 poison kamran extract Allergy Other (See Verified 01/03/25 13:52 Comment) poison oak extract Allergy Other (See Verified 01/03/25 13:52 Comment) codeine AdvReac Mild Other (See Verified 01/03/25 13:52 Comment) General Stated Complaint: RashLesion ISSA: 3 Exam Narrative Exam Narrative: 1.Const: Well-nourished, Well-developed, appearing stated age 2.Eyes: PERRL, no conjunctival injection, and symmetrical lids. 3.ENT: Atraumatic external nose and ears. Moist MM. Neck: Symmetric, trachea midline, No thyromegaly. 4.CVS: +S1/S2, Peripheral pulses 2+ and equal in all extremities. Brisk capillary refill in all extremities. 5.RESP: Unlabored respiratory effort. Clear to auscultation bilaterally. No wheezes rales or rhonchi 6.GI: Soft, Nontender/Nondistended, No hepatosplenomegaly. No guarding or rebound. 7.MSK: Normocephalic/Atraumatic, Extremities w/o deformity or ttp No cyanosis or clubbing, Normal movement of all extremities 8.Skin: Patient has a 16 x 14 cm area of erythema over the left back, there is a central lesion that appears to be a previous abscess that was popped and drained. No fluctuance or induration of significance at this time. Negative Nikolsky sign. No large vesicles or bulla. No palpable purpura. No oral lesions. No mucosal lesions. No evidence of severe cellulitis. No evidence of vaccine preventable rash. 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 Sensation grossly intact, no focal neurologic deficits. 10.Psych: (AAO) x3. Appropriate mood and affect Course Vital Signs Vital signs: Vital Signs Temperature 36.7 C 01/03/25 13:53 Pulse 102 H 01/03/25 13:53 Respiratory Rate 20 01/03/25 13:53 Blood Pressure 181/120 H 01/03/25 13:53 Pulse Oximetry 98 01/03/25 13:53 Temperature 36.7 C 01/03/25 13:53 Temperature Source Oral 01/03/25 13:53 Pulse 102 H 01/03/25 13:53 Respiratory Rate 20 01/03/25 13:53 Blood Pressure 181/120 H 01/03/25 13:53 Blood Pressure Position Sitting 01/03/25 13:53 Pulse Oximetry 98 01/03/25 13:53 Oxygen Delivery Method Room Air 01/03/25 13:53 Oxygen Flow Rate 0 01/03/25 13:53 Pain Level 0 01/03/25 13:53 Medical Decision Making 54-year-old homeless male presents today for evaluation of rash on his left shoulder/back. He has a history of hypertension but has not been taking his hypertensive medications because of their cost. He states that few days ago he noticed a red spot on his left back, it grew in size, and eventually developed a purulent area which was popped and drained. However he still has pain since then. He denies fever or chills. He denies any previous tick bite there. No other complaints at this time. No other modifying factors. Patient has a 16 x 14 cm area of erythema over the left back, there is a central lesion that appears to be a previous abscess that was popped and drained. No fluctuance or induration of significance at this time. Negative Nikolsky sign. No large vesicles or bulla. No palpable purpura. No oral lesions. No mucosal lesions. No evidence of severe cellulitis. No evidence of vaccine preventable rash. No current clinical evidence of staph scalded skin syndrome, erythema multiforme, erythema migrans, toxic epidermal necrolysis, Flores-Edvin syndrome, Kawasaki-like rash, meningococcemia, pemphigus vulgaris, or necrotizing fasciitis. Demonstrates signs and symptoms consistent with mild to moderate cellulitis. Patient has no fever. No systemic symptoms of chills. Heart rate normalized once the patient came in from the hot weather today. He was notably hypertensive, and so we will give him a few doses of metoprolol for home, we will give 3 tablets of 50 mg metoprolol to take daily. We will help establish community connections for him for prescription filling. In regards to the cellulitis on his left shoulder, we will give prescription for clindamycin for treatment of this. Discussed the importance of yogurt with live culture to help mitigate diarrhea. Discussed red flags which to return. I have extensively reviewed the treatment plan and discharge instructions with the patient. I have addressed all patient concerns at this time. The patient was made aware of what symptoms to monitor for that would warrant a return to the emergency department. Discussed the plan with the patient, they demonstrate verbal understanding and agreement with our assessment and plan at this time. The documentation in this chart was dictated using [employer] dictation software. Please excuse any dictation errors. Additionally, the patient denies any headache chest pain or shortness of breath suggestive of a hypertensive emergency. PFSH All Active Problems (Updated 01/03/25 @ 23:40 by Johnson Garduno DO) Homeless (Acute) Patient cannot afford medications (Acute) Hypertension (Chronic) Cellulitis of left shoulder (Acute) Spell of altered cognition (Acute) Syncope (Chronic) Medical History Anxiety Excessive drinking of alcohol Hypertension Smoker Surgical History S/P eye surgery metal shrapnel removal S/P hernia repair Social History Smoking/Tobacco Use Status: Current every day Tobacco Type: cigarettes Years smoked: 35 Smoking risk assessment performed?: Yes Alcohol Intake: current Alcohol Intake frequency: 3 or more drinks per day Alcohol type: beer Drug use: Never Substance use type: does not use Household members: significant other and children Housing: house current occupation: Yardwork; [employer] Pets and animals: Yes Pets and animals: dog(s) and farm animals What is your relationship status?: Panel score (0-1 are the most socially isolated patients): 0 What type of physical activity do you participate in: walking Seatbelt use: always Do you feel safe at home: Yes Do you feel safe in your relationship?: Yes PAWSS Have you Been Recently Intoxicated or Drunk Within the Last 30 days?: Yes Have you Ever Experienced Previous Episodes of Alcohol Withdrawal?: Yes Have you ever Experienced Withdrawal Seizures?: Yes Have you ever Experienced Delirium Tremens(DT)s?: Yes Have you ever undergone Alcohol Rehabilitation Treatment (i.e, inpt ot outpatient treatment programs)?: No Have you ever Experienced Blackouts?: No Have you ever Combined Alcohol with other Downers within the last 90 days?: No Have you ever Combined Alcohol with any other Substance of Abuse during the last 90 days?: No Positive Blood Alcohol level on Presentation? [PCS.BAL]: Yes Evidence of Increased Autonomic Activity (i.e. HR>120, tremor, sweating, agitation, nausea)?: No Result: 5
[2025-01-03] MEDS: Clindamycin 150 MG CAP, 12 CAPS/BTL 450 MG PO (14:20)
[2025-01-03] MEDS: Metoprolol CR 50 MG TABCR 150 MG PO (14:38)
[2025-01-03 14:43] VITALS: BP 190/100; PULSE 90; RESP 19; O2SAT 94
== END 2025-01-03 14:42 | disposition home or self-care (01) ==
LOC: ER 14:52
PROVIDERS: Emergency Provider Student in an Organized Health Care Education/Training Program; PCP Family Medicine
DX: L03.114 Cellulitis of left upper limb (principal); I10 Essential (primary) hypertension; T44.7X6A Underdosing of beta-adrenoreceptor antagonists, initial encounter; Z91.141 Patient's other noncompliance with medication regimen due to financial hardship; F17.210 Nicotine dependence, cigarettes, uncomplicated; Z79.82 Long term (current) use of aspirin; Z59.00 Homelessness unspecified
CPT/HCPCS: 99283